=== PATIENT | female | born 1990 | race Caucasian/White ===

== ENCOUNTER 2017-11-12 11:52 | Inpatient (IN) | payer BC ==
[2017-11-12] MEDS ORDERED: Ondansetron 4 MG/2 ML SDV IVPUSH PRN (13:53)
[2017-11-12] MEDS ORDERED: fentaNYL 100 MCG/2 ML SDV EPIDUR PRN (13:53)
[2017-11-12] MEDS ORDERED: ePHEDrine 50 MG/ML SDV IVPUSH PRN (13:53)
[2017-11-12] MEDS ORDERED: Phenylephrine 1 MG in Sodium Chloride 0.9% 10 ML IV SCH (14:00)
[2017-11-12] MEDS ORDERED: Bupivacaine/fentaNYL/NS 100 ML Bag EPIDUR SCH (14:00)
--- NOTE | 2017-11-12 14:08 | PCM.PREANE ---
Preanesthetic Assessment - Anesthesia/Transfusion/Family Hx Anesthesia History: Prior Anesthesia Without Reaction Family History of Anesthesia Reaction: No Transfusion History: No Prior Transfusion(s) Intubation History: Unknown - Review of Systems General: No Symptoms Pulmonary: No Symptoms (quit smoking with /March 2017/sports induced asthma in the past.), Cough Cardiovascular: No Symptoms Gastrointestinal: No Symptoms (GERD) Neurological: No Symptoms Other: Reports: Easy Bruising, Diabetes (gestational DM diet controlled) - Physical Assessment NPO Status Date: 11/12/17 NPO Status Time: 11:30 Pulse: 70 O2 Sat by Pulse Oximetry: 99 Respiratory Rate: 22 Blood Pressure: 129/79 Temperature: 100.8 C Height: 1.57 m Weight: 90.174 kg ASA Class: 2 Mental Status: Alert & Oriented x3 Airway Class: Mallampati = 2 Dentition: Reports: Normal Dentition, Caries Thyro-Mental Finger Breadths: 3 Mouth Opening Finger Breadths: 3 ROM/Head Extension: Full Lungs: Clear to Auscultation, Normal Respiratory Effort Cardiovascular: Regular Rate, Regular Rhythm, No Murmurs - Allergies Allergies/Adverse Reactions: Allergies Allergy/AdvReac Type Severity Reaction Status Date / Time No Known Allergies Allergy Verified 11/12/17 12:09 - Anesthesia Plan Pre-Op Medication Ordered: None - Acknowledgements Anesthesia Type Planned: Epidural Pt an Appropriate Candidate for the Planned Anesthesia: Yes Alternatives and Risks of Anesthesia Discussed w Pt/Guardian: Yes Pt/Guardian Understands and Agrees with Anesthesia Plan: Yes PreAnesthesia Questionnaire - CURRENT (IN HOUSE) MEDS Current Meds: Current Medications Ephedrine Sulfate (Ephedrine Sulfate) 5 mg IVPUSH ASDIRECTED PRN PRN Reason: Hypotension Fentanyl (Sublimaze) 100 mcg EPIDUR Q3H PRN PRN Reason: Pain Fentanyl/Bupivacaine HCl (Fentanyl/Bupivacaine/Ns 2 Mcg-0.125% 100 Ml) 100 ml EPIDUR ASDIRECTED TONY Phenylephrine HCl 1 mg/ Sodium (Chloride) 10.1 mls @ 1 mls/sec IV TITRATE TONY; Protocol Ondansetron HCl (Zofran) 4 mg IVPUSH ONETIME PRN PRN Reason: Nausea/Vomiting
[2017-11-12] MEDS ORDERED: Sodium Chloride 0.9% 10 ML Syringe FLUSH PRN (14:11)
[2017-11-12] MEDS ORDERED: Oxytocin/Lactated Ringers 10 UNIT/1,000 ML BAG IV SCH (14:15)
[2017-11-12] MEDS: Lactated Ringers 1,000 ML IV SCH ×3 (14:30→17:31)
[2017-11-12] MEDS ORDERED: Lanolin 100% Cream 7 GM Tube TOP PRN (21:50)
[2017-11-12] MEDS ORDERED: Acetaminophen 325 MG Tab PO PRN (21:50)
[2017-11-12] MEDS ORDERED: Benzocaine/Menthol 20%-0.5% Spray 56 GM Canister TOP PRN (21:50)
[2017-11-12] MEDS ORDERED: Witch Hazel Medicated Pads 100/Jar TOP PRN (21:50)
[2017-11-12] MEDS ORDERED: Bupivacaine 0.25% 10 ML SDV ONE (22:00)
[2017-11-12] MEDS: Ibuprofen 600 MG Tab PO PRN (23:00)
[2017-11-12] MEDS: Docusate Sodium 100 MG Cap PO PRN (23:01)
[2017-11-13] MEDS: Ibuprofen 600 MG Tab PO PRN ×3 (03:55→16:45)
--- NOTE | 2017-11-13 08:26 | HP ---
DATE OF ADMISSION: 11/12/2017 ADMISSION DIAGNOSES: 1. Intrauterine at 38-4/7 weeks gestational age. 2. Active labor. 3. Advanced cervical dilation. HISTORY OF PRESENT ILLNESS: The patient is a 27-year-old 1, para 0 white female who was admitted in active labor. She had been in earlier in the day with contractions, was sent home feeling that she might be in early labor with possibly false labor, and had not made a significant change in her cervix. Contractions continued, and the patient was readmitted to the hospital with persistent contractions and was found to be 5 cm dilated with a bulging bag of rodriguez at that time. Her ELPIDIO is 11/22/2017 as based upon a certain last menstrual period, which started on 02/15/2017, and is supported by 3 ultrasounds, with the first one being done on 04/20/2017 at 9-4/7 weeks, the second one done on 04/08/2017 at 7-2/7 weeks gestational age, and a full ultrasound done at 20-5/7 weeks on 07/10/2017. The patient is desiring an epidural. An epidural was placed. OBSTETRICAL AND GYNECOLOGICAL HISTORY: 1, para 0. Last menstrual period was fairly definite with normal regular monthly menses at a frequency of q.28-30 days and a duration of 5 to 7 days. Menarche age 13. Positive HCG on 03/13/2017. course has been relatively unremarkable. She is a [facility] patient. She had a quad screen which was unremarkable. She failed her 3-hour glucose tolerance test and was labeled a gestational diabetic. Her blood sugars were under good control throughout the with diet alone. Her group B strep screen was negative. The patient had the flu vaccine last fall. She is desiring an epidural in Labor and Delivery. The patient plans to breastfeed. Tdap was administered on 09/07/2017. COURSE: The patient was seen early in the at 9 weeks and 1 day for her first visit and at 7 weeks and 2 days for an early ultrasound. Her weight gain was from 189.6 pounds up to 198 pounds for a 9-pound weight gain. Her vital signs were stable, and fundal height growth was appropriate. LABORATORY DATA: Laboratory testing in shows her blood to be O positive with a negative antibody screen. First hemoglobin was 13.4 g/dL, and platelets were 195,000. She is rubella immune. RPR is nonreactive. Hepatitis B and HIV assays were both negative. Gonorrhea and chlamydia assays were both negative. Second-trimester labs showed a hemoglobin of 11.9 g/dL and platelets 193,000. 1 - hour GTT was 162. Her 3-hour glucose tolerance test was elevated with a fasting blood sugar of 90, a 1-hour glucose of 219, a 2-hour glucose of 196, and a 3- hour glucose of 81. Her group B strep screen was negative. ALLERGIES: None. CURRENT MEDICATIONS: 1. Iron in the form of ferrous sulfate 325 mg per day. 2. vitamins 1 daily. 3. Calcium 500 mg 1 tablet daily. PAST MEDICAL HISTORY: History of asthma. PAST SURGICAL HISTORY: [place] teeth extraction. FAMILY HISTORY: The patient's mother is alive and well with factor V Leiden mutation. The patient reports she has been evaluated for this and does not have this condition. Father with a history of DVT, on anticoagulants. Two brothers are healthy. One sister with endometriosis. Maternal grandmother is alive with factor V Leiden mutation. Paternal grandfather is alive with Alzheimer's and pancreatic cancer. Paternal grandmother is alive with a history of schizophrenia. Paternal grandfather is secondary to a motor vehicle accident. SOCIAL HISTORY: The patient is . is Krystian Virgen. The patient is a retail customer service representative. She lives in [place]. She does not use any significant amounts of alcohol, drugs, or tobacco. REVIEW OF SYSTEMS: GENERAL: The patient reports contractions and good activity. She has no other significant concerns. SKIN: Negative. CARDIOVASCULAR: No chest pain or exercise intolerance. RESPIRATORY: No infectious disease or shortness of breath. BREASTS: Changes associated with . The patient does plan to breastfeed. GASTROINTESTINAL: Negative. GENITOURINARY: Contractions and cervical dilation as described above. EXTREMITIES: Negative. NEUROLOGICAL: Negative. PHYSICAL EXAMINATION: VITAL SIGNS: On the last evaluation in the clinic shows blood pressure 120/68. Weight is 198 with a pregravid weight of 189.6 and a pregravid body mass index of 31. heart rate on the last evaluation in the clinic is 160. GENERAL: The patient is a well-developed, well-nourished, overweight female in no acute distress. SKIN: Warm and dry, without lesion. The patient has many tattoos. HEENT: Within normal limits. NECK: Within normal limits. BACK: Within normal limits. LUNGS: Clear, with good breath sounds in all lung felix. CARDIOVASCULAR: Shows a regular rate and rhythm, without murmurs. BREASTS: Deferred at this time, having been done at the first visit and found to be normal. It is not repeated at this time. ABDOMEN: Protuberant with , with a last fundal height of 38 cm. The baby is in a vertex presentation. The cervix on the last evaluation in the clinic was 2 cm, 70% effaced, very soft, -3 station, and midposition. EXTREMITIES: Unremarkable. NEUROLOGICAL: Unremarkable. ASSESSMENT: 1. A 38-4/7 weeks intrauterine , active labor, change in cervix. 2. Relatively low-risk , does have a family history of factor V Leiden mutation but she herself does not have this. 3. Group B streptococcus screen is negative. 4. The patient desires an epidural. 5. The patient plans to breastfeed. PLAN: 1. Anticipate a normal spontaneous vaginal delivery. 2. Epidural p.r.n. for the patient's analgesia. 3. Routine labor cares. MMODAL /[id number] ANEUDY
--- NOTE | 2017-11-13 08:49 | PCM.SN ---
- Free Text/Narrative Note: Mona is a 27-year-old 1 now para 1001 white female who is admitted in active labor in the afternoon of 11/12/2017. She is 38-4/7 weeks gestational age. She progressed steadily in labor to complete cervical dilation. At that time artificial rupture membranes was can with resultant mild meconium-stained amniotic fluid. Patient began having significant variable decelerations and a bradycardia and decision was made to proceed with vacuum extraction delivery. Vacuum extraction was performed with one contraction and without any pop offs. Patient did very well. He delivered a viable, gant, male weighing 7 lbs. 5 oz. and delivering in a right occiput anterior position. Patient had a second-degree laceration. Patient was treated with Pitocin IV after delivery of the baby to facilitate increase in tone of the uterus and to decrease likelihood of bleeding. The cord was clamped 2 and was then cut by the baby's father. Baby was taken to the warmer and attended to by nursery personnel. Apgars were 8 and 9. The laceration was repaired in routine fashion with 3-0 Monocryl. Placenta delivered in a Gutierrez presentation, appeared intact and complete and was discarded per patient desire. Estimated blood loss was 100 mL. Patient plans to breast-feed. Condition: Good.
--- NOTE | 2017-11-13 08:51 | PCM.SN ---
- Free Text/Narrative Note: note: Patient is doing well in the period. Minimal lochia, voiding well, ambulated without problems. Nursing without concerns. Patient is afebrile, vital signs are stable Abdomen is flat, soft, uterus is below the umbilicus and is firm and nontender. Legs are nontender. Assessment: recovery going well. Plan: Routine care. Patient be discharged home within the next 24- 48 hours.
--- NOTE | 2017-11-13 10:55 | PCM48HPAN ---
Post Anesthesia Note - EVALUATION WITHIN 48HRS OF ANESTHETIC Vital Signs in Normal Range: Yes Patient Participated in Evaluation: Yes Respiratory Function Stable: Yes Airway Patent: Yes Cardiovascular Function Stable: Yes Hydration Status Stable: Yes Pain Control Satisfactory: Yes Nausea and Vomiting Control Satisfactory: Yes Mental Status Recovered: Yes Pulse Rate: 64 Resp Rate: 15 Temperature: 36.4 C Blood Pressure: 109/62 - COMMENTS/OBSERVATIONS Free Text/Narrative:: Evaluated post Labor Epidural 11/13/17. Patient states that epidural covered labor pain well. Some bruising feeling at epidural site. No major pain, no headache at this time. No N/V. Able to ambulate without assistance.
[2017-11-13] MEDS: Docusate Sodium 100 MG Cap PO PRN (16:45)
[2017-11-14] MEDS: Ibuprofen 600 MG Tab PO PRN ×2 (00:46→08:43)
[2017-11-14] MEDS: Docusate Sodium 100 MG Cap PO PRN (08:46)
--- NOTE | 2017-11-14 10:25 | PCM.DCSUM1 ---
Discharge Summary - Hospital Course Free Text/Narrative:: [facility] LIVE Provider Simple Note Patient Name: MONA SHARIF Date of : [birth year] Patient Status: Inpatient Attending Provider: Felix Bradley Date: 11/13/17 08:44 Initialization Date: 11/13/17 08:44 - Free Text/Narrative Note: Mona is a 27-year-old 1 now para 1001 white female who is admitted in active labor in the afternoon of 11/12/2017. She is 38-4/7 weeks gestational age. She progressed steadily in labor to complete cervical dilation. At that time artificial rupture membranes was can with resultant mild meconium-stained amniotic fluid. Patient began having significant variable decelerations and a bradycardia and decision was made to proceed with vacuum extraction delivery. Vacuum extraction was performed with one contraction and without any pop offs. Patient did very well. He delivered a viable, gant, male infant weighing 7 lbs. 5 oz. and delivering in a right occiput anterior position. Patient had a second-degree laceration. Patient was treated with Pitocin IV after delivery of the baby to facilitate increase in tone of the uterus and to decrease likelihood of bleeding. The cord was clamped 2 and was then cut by the baby's father. Baby was taken to the warmer and attended to by nursery personnel. Apgars were 8 and 9. The laceration was repaired in routine fashion with 3-0 Monocryl. Placenta delivered in a Gutierrez presentation, appeared intact and complete and was discarded per patient desire. Estimated blood loss was 100 mL. Patient plans to breast-feed. Condition: Good. EPDS 2/30 no suicidal plans, ideations, desire to hurt self or others. HPI Initial Comments: [facility] LIVE Provider Simple Note Patient Name: MONA SHARIF Date of : [birth year] Patient Status: Inpatient Attending Provider: Felix Bradley Date: 11/13/17 08:44 Initialization Date: 11/13/17 08:44 - Free Text/Narrative Note: Mona is a 27-year-old 1 now para 1001 white female who is admitted in active labor in the afternoon of 11/12/2017. She is 38-4/7 weeks gestational age. She progressed steadily in labor to complete cervical dilation. At that time artificial rupture membranes was can with resultant mild meconium-stained amniotic fluid. Patient began having significant variable decelerations and a bradycardia and decision was made to proceed with vacuum extraction delivery. Vacuum extraction was performed with one contraction and without any pop offs. Patient did very well. He delivered a viable, gant, male weighing 7 lbs. 5 oz. and delivering in a right occiput anterior position. Patient had a second-degree laceration. Patient was treated with Pitocin IV after delivery of the baby to facilitate increase in tone of the uterus and to decrease likelihood of bleeding. The cord was clamped 2 and was then cut by the baby's father. Baby was taken to the warmer and attended to by nursery personnel. Apgars were 8 and 9. The laceration was repaired in routine fashion with 3-0 Monocryl. Placenta delivered in a Gutierrez presentation, appeared intact and complete and was discarded per patient desire. Estimated blood loss was 100 mL. Patient plans to breast-feed. Condition: Good. EPDS 2/30 no suicidal plans, ideations, desire to hurt self or others. Brief History: [facility] . [facility] Simple Note. [facility]: [id number] Date of : Patient Status: Inpatient. Attending Provider: Felix Bradley FAccount Number : [id number]. Date: 11/13/17 08:44Initialization Date: 11/13/17 08:44. - Free Text/Narrative. Note: Mona is a 27-year-old 1 now para 1001 white female who is admitted in active labor in the afternoon of 11/12/2017. She is 38-4/7 weeks gestational age. She progressed steadily in labor to complete cervical dilation. At that time artificial rupture membranes was can with resultant mild meconium-stained amniotic fluid. Patient began having significant variable decelerations and a bradycardia and decision was made to proceed with vacuum extraction delivery. Vacuum extraction was performed with one contraction and without any pop offs. Patient did very well. He delivered a viable, gant, male weighing 7 lbs. 5 oz. and delivering in a right occiput anterior position. Patient had a second-degree laceration. Patient was treated with Pitocin IV after delivery of the baby to facilitate increase in tone of the uterus and to decrease likelihood of bleeding. The cord was clamped 2 and was then cut by the baby's father. Baby was taken to the warmer and attended to by nursery personnel. Apgars were 8 and 9. The laceration was repaired in routine fashion with 3-0 Monocryl. Placenta delivered in a Gutierrez presentation, appeared intact and complete and was discarded per patient desire. Estimated blood loss was 100 mL. Patient plans to breast-feed. Condition : Good. EPDS no suicidal plans, ideations, desire to hurt self or others. Diagnosis: Stroke: No - Discharge Data Discharge Date: 11/14/17 Discharge Disposition: Home, Self-Care 01 Condition: Good - Discharge Diagnosis/Problem(s) (1) 38 weeks gestation of SNOMED Code(s): 29759227 ICD Code: Z3A.38 - 38 WEEKS GESTATION OF Status: Acute Current Visit: Yes (2) Normal delivery SNOMED Code(s): 94651722, 753457212 ICD Code: O80 - ENCOUNTER FOR FULL-TERM UNCOMPLICATED DELIVERY Status: Acute Current Visit: Yes (3) Second degree laceration of perineum, delivered, current hospitalization SNOMED Code(s): 112776893 ICD Code: O70.1 - SECOND DEGREE PERINEAL LACERATION DURING DELIVERY Status : Acute Current Visit: Yes - Patient Summary/Data Complications: None Consults: None Hospital Course: Uneventful - Patient Instructions Diet: Regular Diet as Tolerated Driving: Do Not Drive (48 hours) Showering/Bathing: May Shower Notify Provider of: Fever, Increased Pain, Swelling and Redness, Drainage, Nausea and/or Vomiting - Discharge Plan Prescriptions/Med Rec: Ibuprofen 200 - 600 mg PO Q6H #50 tablet Home Medications: Home Meds Ferrous Sulfate [Slow Release Iron] 160 mg PO DAILY 11/12/17 [History] Prenat Vit Comb.10/Iron/Fa/Dha [Vitafol-OB + DHA] 1 each PO DAILY 11/12/17 [ History] Acetaminophen [Tylenol] 650 mg PO Q4H PRN tablet 11/14/17 [Rx] Docusate Sodium [Colace] 100 mg PO BID PRN cap 11/14/17 [Rx] Ibuprofen 200 - 600 mg PO Q6H #50 tablet 11/14/17 [Rx] Lanolin [Lansinoh HPA] 1 applic TOP ASDIRECTED PRN #1 tube 11/14/17 [Rx] Witch Aide [Tucks] 1 pad TOP ASDIRECTED PRN pad 11/14/17 [Rx] Referrals: Felix Bradley MD [Primary Care Provider] - (Patient will call Thursday to see Dr. Bradley in 2 weeks.) - Discharge Summary/Plan Comment DC Time >30 min.: No - Patient Data Vitals - Most Recent: Last Vital Signs Temp 97.9 F 11/14/17 03:15 Pulse 65 11/14/17 03:15 Resp 15 11/14/17 03:15 BP 94/50 L 11/14/17 03:15 Pulse Ox 97 11/14/17 03:15 Weight - Most Recent: 198 lb 12.8 oz I&O - Last 24 hours: Intake & Output 11/13/17 11/14/17 11/14/17 22:59 06:59 14:59 Intake Total 0 Balance 0 Lab Results - Last 24 hrs: Laboratory Results - last 24 hr 11/12/17 Range/Units 14:24 RPR Non-reactive (NONREACTIVE) Med Orders - Current: Current Medications Acetaminophen (Tylenol) 650 mg PO Q4H PRN PRN Reason: mild pain or fever Benzocaine/Menthol (Dermoplast Pain Relief [place]) 0 gm TOP ASDIRECTED PRN PRN Reason: Perineal Comfort Measure Last Admin: 11/12/17 23:00 Dose: 1 applic Docusate Sodium (Colace) 100 mg PO BID PRN PRN Reason: Constipation Last Admin: 11/14/17 08:46 Dose: 100 mg Emollient Ointment (Lansinoh Hpa) 0 gm TOP ASDIRECTED PRN PRN Reason: Sore Nipples Last Admin: 11/14/17 02:36 Dose: 1 tube Ibuprofen (Motrin) 600 mg PO Q4H PRN PRN Reason: Mild pain or fever Last Admin: 11/14/17 08:43 Dose: 600 mg Witch Aide (Tucks) 1 pad TOP ASDIRECTED PRN PRN Reason: Hemorrhoid pain Last Admin: 11/12/17 22:59 Dose: 1 applic Discontinued Medications Ephedrine Sulfate (Ephedrine Sulfate) 5 mg IVPUSH ASDIRECTED PRN PRN Reason: Hypotension Fentanyl (Sublimaze) 100 mcg EPIDUR Q3H PRN PRN Reason: Pain Last Admin: 11/12/17 14:51 Dose: 100 mcg Fentanyl/Bupivacaine HCl (Fentanyl/Bupivacaine/Ns 2 Mcg-0.125% 100 Ml) 100 ml EPIDUR ASDIRECTED TONY Last Admin: 11/12/17 14:51 Dose: 100 ml Phenylephrine HCl 1 mg/ Sodium (Chloride) 10.1 mls @ 1 mls/sec IV TITRATE TONY; Protocol Lactated Ringer's (Ringers, Lactated) 1,000 mls @ 100 mls/hr IV ASDIRECTED TONY Last Admin: 11/12/17 17:31 Dose: 100 mls/hr Oxytocin/Lactated Ringer's (Pitocin In Lr 10 Units/1,000 Ml) 10 unit in 1,000 mls @ 100 mls/hr IV .CONTINUOUS TONY; Protocol Ondansetron HCl (Zofran) 4 mg IVPUSH ONETIME PRN PRN Reason: Nausea/Vomiting Sodium Chloride (Saline Flush) 10 ml FLUSH ASDIRECTED PRN PRN Reason: Keep Vein Open
== END 2017-11-14 13:00 | disposition home or self-care (01) | DRG 560 ==
LOC: JD.OBCHECK 11:52 → JD.OB 11:58 → JD.OBCHECK 16:34 → JD.OB 16:35 → OBSVTOIN 19:40 → JD.OB 20:05
PROVIDERS: ADMIT Obstetrics & Gynecology; ATTEND Obstetrics & Gynecology
PROC: 10D07Z6 Extraction of Products of Conception, Vacuum, Via Natural or Artificial Opening (ICD-10-PCS; principal; 2017-11-12)
PROC: 0KQM0ZZ Repair Perineum Muscle, Open Approach (ICD-10-PCS; 2017-11-12)
PROC: 10907ZC Drainage of Amniotic Fluid, Therapeutic from Products of Conception, Via Natural or Artificial Opening (ICD-10-PCS; 2017-11-12)
PROC: 00HU33Z Insertion of Infusion Device into Spinal Canal, Percutaneous Approach (ICD-10-PCS; 2017-11-12)
PROC: 3E0R3BZ Introduction of Anesthetic Agent into Spinal Canal, Percutaneous Approach (ICD-10-PCS; 2017-11-12)
DX: O70.1 Second degree perineal laceration during delivery (principal); O69.81X0 Labor and delivery complicated by cord around neck, without compression, not applicable or unspecified; O77.0 Labor and delivery complicated by meconium in amniotic fluid; Z3A.38 38 weeks gestation of pregnancy; Z37.0 Single live birth; O36.8190 Decreased fetal movements, unspecified trimester, not applicable or unspecified
CPT/HCPCS: 01967; 36415; 51702; 59020; 59300; 59409; 85025; 85027; 86592; A9270-GY; J3010; J7120

== ENCOUNTER 2020-05-10 16:03 | Inpatient (IN) | payer OTHER ==
[2020-05-10] MEDS ORDERED: Metoclopramide 10 MG/2 ML SDV IVPUSH ONE (16:18)
[2020-05-10] MEDS ORDERED: Sodium Chloride 0.9% 10 ML Syringe FLUSH PRN (16:18)
[2020-05-10] MEDS ORDERED: Citric Acid/Sodium Citrate Solution 30 ML Cup PO ONE (16:18)
[2020-05-10] MEDS ORDERED: ceFAZolin 2 GM in Premix Bag 1 BAG IV ONE (16:18)
[2020-05-10] MEDS ORDERED: Bupivacaine 0.5% 30 ML SDV ONE (16:24)
[2020-05-10] MEDS ORDERED: Lactated Ringers 1,000 ML IV SCH (16:30)
[2020-05-10] MEDS ORDERED: Oxytocin/Lactated Ringers 10 UNIT/1,000 ML BAG IV SCH ×2 (16:30→19:19)
[2020-05-10] MEDS ORDERED: Oxytocin/Lactated Ringers 20 UNIT/1,000 ML BAG IV SCH (17:00)
[2020-05-10] MEDS ORDERED: Morphine PF 10 MG/10 ML SDV ONE (17:04)
[2020-05-10] MEDS ORDERED: Oxytocin 10 Units/1 ML SDV ONE (17:04)
[2020-05-10] MEDS ORDERED: Lactated Ringers 2,000 ML ONE (17:04)
[2020-05-10] MEDS ORDERED: Ondansetron 4 MG/2 ML SDV ONE (17:04)
[2020-05-10] MEDS ORDERED: ceFAZolin 1 GM Vial ONE (17:04)
[2020-05-10] MEDS ORDERED: Ketorolac 15 MG/ML SDV ONE (17:06)
[2020-05-10] MEDS ORDERED: fentaNYL 100 MCG/2 ML SDV IVPUSH PRN (17:13)
[2020-05-10] MEDS ORDERED: diphenhydrAMINE 50 MG/ML SDV IVPUSH PRN ×2 (17:13→19:19)
[2020-05-10] MEDS ORDERED: Ondansetron 4 MG/2 ML SDV IVPUSH PRN (17:13)
--- NOTE | 2020-05-10 17:13 | PCM.LDHP ---
L&D History of Present Illness - General Date of Service: 05/10/20 Admit Problem/Dx: Patient Status Order with Admit Dx/Problem 05/10/20 16:18 Patient Status [ADT] Routine Admission Diagnosis/Problem Admission Diagnosis/Problem Source of Information: Patient History Limitations: Reports: No Limitations - History of Present Illness Introduction:: Mona Virgen is a 29-year-old -0-0-1 female at 38 weeks 0 days sees ELPIDIO 05/24/2020) who presented to clinic with concern for possible labor with regular contractions. She was having contractions every 2 to 3 minutes on the monitor and was feeling these contractions at a 4-5/10 on a pain scale. The NST she had done in the office was reactive. On cervical exam the office she was found to be 5/60/-3/soft/anterior. Patient was sent to labor and delivery due to being an active labor and desiring primary section. Timing/Duration: Reports: gradual onset (At around 11 AM), getting worse Location, : Reports: Lower back, Pelvic Quality: Reports: Pressure, Throbbing Severity: Mild Improves with: Reports: None Worsens with: Reports: None Associated Symptoms: Reports: vaginal bleeding (Small amount of bleeding with the start of the contractions). Denies: vaginal discharge, vaginal fluid Present Illness Comments:: Mona Virgen is a 29-year-old -0-0-1 female at 38 weeks 0 days (ELPIDIO 05/24/2020) by LMP consistent with a 12-week ultrasound who presents with active labor and desires primary section. She has had routine care with Dr. Bradley starting at 12 weeks gestational age. She received Tdap vaccine on 04/23/2020. She received influenza vaccine on 03/26/2020. Patient was found to have that was measuring large for dates on ultrasound that was done on 02/27/2020 with the measuring approximately 3 weeks ahead. Patient had discussion with her primary provider, Dr. Bradley, about performing primary section due to the infant that was measuring large as well as her history of pelvic floor injury after the operative delivery of her first where she developed a significant cystocele as well as stress urinary incontinence. Patient is concerned about ongoing issues with pelvic floor injury with delivery of this infant if it is measuring larger than normal. Patient was scheduled for primary section on 05/17/[address] Bradley. This is complicated by: * History of gestational diabetes in her first with normal testing during this * Large for gestational age infant with measuring 3 weeks ahead on ultrasound done at 31 weeks gestational age [employer] history -0-0-1 G1: 11/12/2017, 38 weeks 4 days, vacuum-assisted vaginal delivery, male , 7 pounds 6 ounces, epidural for anesthesia G2: Current labs Blood type: O+ Antibody screen: Negative First trimester hematocrit/hemoglobin: 39.4%/13.3 on 11/07/2019 Platelets: 219 on 11/07/2019 Urine culture: Mixed karo suggestive of contamination Rubella status: Immune Hepatitis B surface antigen: Negative RPR: Negative HIV: Negative Early 1 hour glucose tolerance test: 108 Anatomy ultrasound: Normal anatomy, normal placental location, EFW 2389 g on ultrasound done on 03/28/2020 One hour glucose tolerance test: 112 Second trimester hematocrit/hemoglobin: 37.0%/12.2 on 12/06/2019 Platelets: 196 on 12/06/2019 GBS status: Negative - Related Data Allergies/Adverse Reactions: Allergies Allergy/AdvReac Type Severity Reaction Status Date / Time No Known Allergies Allergy Verified 11/12/17 12:09 Home Medications: Home Meds Ferrous Sulfate [Slow Release Iron] 160 mg PO DAILY 11/12/17 [History] Vit 10/Iron/Folic/Dha [Vitafol-OB + DHA] 1 each PO DAILY 11/12/17 [History] Past Medical History - Past Health History Medical/Surgical History: Denies Medical/Surgical History Respiratory History: Reports: Asthma Other Respiratory History: exercise induced asthma [employer] History: Reports: : 2 Para: 1 Endocrine/Metabolic History: Reports: Diabetes, Gestational (History of gestational diabetes in her first ) - Past Surgical History HEENT Surgical History: Reports: None Respiratory Surgical History: Reports: None Female Surgical History: Reports: None Social & Family History - Family History Family Medical History: No Pertinent Family History - Tobacco Use Tobacco Use Status *Q: Former Tobacco User Tobacco Use Within Last Twelve Months: No Used Tobacco, but Quit: Yes Month/Year Tobacco Last Used: 2016 Second Hand Smoke Exposure: No - Tobacco Core Measures Tobacco Use/Smoking Within Last 30 Days: No Smokeless Tobacco Use in Last 30 Days: No - Caffeine Use Caffeine Use: Reports: None - Alcohol Use Alcohol Use History: No - Recreational Drug Use Recreational Drug Use: No - Living Situation & Occupation Living situation: Reports: , with Spouse, with Family Occupation: Employed H&P Review of Systems - Review of Systems: Review Of Systems: See Below General: Denies: Fever, Chills, Malaise, Weakness, Fatigue HEENT: Reports: Sinus Congestion. Denies: Headaches, Rhinitis, Post Nasal Drip, Sore Throat, Visual Changes Pulmonary: Denies: Shortness of Breath, Wheezing, Pleuritic Chest Pain, Cough Cardiovascular: Denies: Chest Pain, Palpitations, Dyspnea on Exertion, Orthopnea Gastrointestinal: Denies: Abdominal Pain, Constipation, Diarrhea, Nausea, Vomiting Genitourinary: Denies: Dysuria, Frequency, Burning, Pain Musculoskeletal: Reports: Back Pain (And hip pain of ), Other (Pelvic pain and pressure with contractions) Skin: Denies: Rash, Lesions Psychiatric: Denies: Depression, Anxiety Neurological: Denies: Dizziness, Headache L&D Exam - Exam Exam: See Below - Vital Signs Weight: 98.43 kg - OB Specific Contraction Duration (sec): 45-60 Contraction Frequency (min): 2-3 Contraction Intensity: Moderate to Strong Movement: Active Heart Tones: Present Heart Tones per Min: 140 (+15 x 15 accelerations, no decelerations) Heart Rate (FHR) Variability: Moderate (6-25 bmp) Presentation: Vertex Estimated Weight: 8.5 to 9 pounds by Javy's - Olivia Score Olivia Score Cervix Position: Anterior Olivia Score Consistency: Soft Olivia Score Effacement: 51-70% (60%) Olivia Score Dilation: > 5 cm (5 cm) Olivia Score 's Station: -3 Olivia Score Total: 9 - Exam General: Alert, Oriented HEENT: Conjunctiva Clear, EOMI Neck: Supple, Trachea Midline Lungs: Clear to Auscultation, Normal Respiratory Effort Cardiovascular: Regular Rate, Regular Rhythm GI/Abdominal Exam: Soft, Non-Tender, No Distention, Other (Gravid). No: Guarding, Rigid, Rebound Genitourinary: Normal external exam Extremities: Normal Inspection, Pedal Edema (1+) Skin: Warm, Dry, Intact Psychiatric: Alert, Normal Affect, Normal Mood - Patient Data Lab Results Last 24 hrs: Laboratory Results - last 24 hr 05/10/20 Range/Units 16:51 WBC 12.85 H (3.98-10.04) K/mm3 RBC 4.05 (3.98-5.22) M/mm3 Hgb 10.5 L (11.2-15.7) gm/dl Hct 33.3 L (34.1-44.9) % MCV 82.2 D (79.4-94.8) fl MCH 25.9 (25.6-32.2) pg MCHC 31.5 L (32.2-35.5) g/dl RDW Std Deviation 39.2 (36.4-46.3) fL Plt Count 208 (182-369) K/mm3 MPV 10.6 (9.4-12.3) fl Neut % (Auto) 80.0 H (34.0-71.1) % Lymph % (Auto) 13.5 L (19.3-51.7) % [place] % (Auto) 5.6 (4.7-12.5) % Eos % (Auto) 0.3 L (0.7-5.8) Baso % (Auto) 0.2 (0.1-1.2) % Neut # (Auto) 10.28 H (1.56-6.13) K/mm3 Lymph # (Auto) 1.73 (1.18-3.74) K/mm3 [place] # (Auto) 0.72 H (0.24-0.36) K/mm3 Eos # (Auto) 0.04 (0.04-0.36) K/mm3 Baso # (Auto) 0.03 (0.01-0.08) K/mm3 Result Diagrams: 05/10/20 16:51 - Problem List (1) Large for gestational age fetus affecting mother, antepartum, third trimester, single gestation SNOMED Code(s): 96245483, 31863332, 10332149, 578168222 ICD Code: O36.63X0 - MATERNAL CARE FOR EXCESS GROWTH, THIRD TRIMESTER, UNSP Status: Acute Current Visit: Yes (2) 38 weeks gestation of SNOMED Code(s): 13248037 ICD Code: Z3A.38 - 38 WEEKS GESTATION OF Status: Acute Current Visit: No Problem List Initiated/Reviewed/Updated: Yes Orders Last 24hrs: Active Orders 24 hr Category Date Time Status Patient Status [ADT] Routine ADT 05/10/20 16:18 Active Communication Order [RC] ROUTINE Care 05/10/20 16:18 Active Heart Tones [RC] PER UNIT ROUTINE Care 05/10/20 16:18 Active Non Stress Test [RC] PER UNIT ROUTINE Care 05/10/20 16:18 Active Peripheral IV Care [RC] . DIRECTED Care 05/10/20 16:19 Active Procedure Site Prep Instruct [RC] ASDIRECTED Care 05/10/20 16:18 Active Verify Patient Consent Obtain [RC] PER UNIT ROUTINE Care 05/10/20 16:18 Active Vital Signs [RC] PFP Care 05/10/20 16:18 Active CORONAVIRUS COVID-19 AMIRAH [MOLEC] Stat Lab 05/10/20 16:39 Ordered RAPID PLASMA REAGIN,RPR [CHEM] Routine Lab 05/10/20 17:00 Received TYPE AND SCREEN [BBK] Stat Lab 05/10/20 16:18 Ordered Lactated Ringers [Ringers, Lactated] 1,000 ml Med 05/10/20 16:30 Active IV ASDIRECTED Oxytocin/Lactated Ringers [Pitocin in LR 10 Units/1,000 Med 05/10/20 16:30 Active ML] 10 unit in 1,000 ml IV ASDIRECTED Oxytocin/Lactated Ringers [Pitocin in LR 20 Units/1,000 Med 05/10/20 17:00 Active ML] 20 unit in 1,000 ml IV TITRATE Sodium Chloride 0.9% [Saline Flush] Med 05/10/20 16:18 Active 10 ml FLUSH ASDIRECTED PRN Peripheral IV Insertion Adult [OM.PC] Routine Oth 05/10/20 16:18 Ordered Schedule Procedure [COMM] Per Unit Routine Oth 05/10/20 16:18 Ordered Resuscitation Status Routine Resus Stat 05/10/20 16:18 Ordered Medication Orders Oxytocin/Lactated Ringer's (Pitocin In Lr 10 Units/1,000 Ml) 10 unit in 1,000 mls @ 100 mls/hr IV ASDIRECTED TONY Oxytocin/Lactated Ringer's (Pitocin In Lr 20 Units/1,000 Ml) 20 unit in 1,000 mls @ 500 mls/hr IV TITRATE TONY Lactated Ringer's (Ringers, Lactated) 1,000 mls @ 125 mls/hr IV ASDIRECTED TONY Last Admin: 05/10/20 16:51 Dose: 500 mls/hr Documented by: TATO Sodium Chloride (Saline Flush) 10 ml FLUSH ASDIRECTED PRN PRN Reason: Keep Vein Open Assessment/Plan Comment:: Mona Virgen is a 29-year-old -0-0-1 female at 38 weeks 0 days (ELPIDIO 05/24/2020) who presented to clinic in active labor and desires primary section due to infant measuring large for gestational age with concern for pelvic floor injury after she had a pelvic floor injury in her first delivery that was an operative vaginal delivery Admit to inpatient after section NST prior to section Place IV and have Lactated Ringer's at 125 ml/hr SCDs for DVT prophylaxis Nothing by mouth Activity as tolerated Plan for spinal injection for anesthesia CBC, RPR and type and screen prior to surgery COVID-19 swab prior to section Plans to breast-feed after delivery Plan for Ancef 2 g IV for antibiotic prophylaxis prior to surgery Aleksandar Shelby M.D. 5:18 PM 05/10/2020
--- NOTE | 2020-05-10 17:31 | PCM.PREANE ---
Preanesthetic Assessment - Procedure Proposed Procedure: C Section - Anesthesia/Transfusion/Family Hx Anesthesia History: Prior Anesthesia Without Reaction Family History of Anesthesia Reaction: No Transfusion History: No Prior Transfusion(s) Intubation History: Unknown - Review of Systems General: No Symptoms Pulmonary: No Symptoms (Exericise Induced Asthma) Cardiovascular: No Symptoms Gastrointestinal: No Symptoms Neurological: No Symptoms Other: Reports: None - Physical Assessment NPO Status Date: 05/09/20 NPO Status Time: 23:30 Vital Signs: Last Vital Signs Temp 36.8 C 05/10/20 16:54 Pulse 77 05/10/20 16:54 Resp 20 05/10/20 16:54 BP 128/89 05/10/20 16:54 Pulse Ox 96 05/10/20 16:54 Height: 1.57 m Weight: 98.43 kg ASA Class: 2 Mental Status: Alert & Oriented x3 Airway Class: Mallampati = 2 Dentition: Reports: Normal Dentition Thyro-Mental Finger Breadths: 3 Mouth Opening Finger Breadths: 3 ROM/Head Extension: Full Lungs: Clear to Auscultation, Normal Respiratory Effort Cardiovascular: Regular Rate, Regular Rhythm - Lab Values: Laboratory Last Values WBC 12.85 K/mm3 (3.98-10.04) H 05/10/20 16:51 RBC 4.05 M/mm3 (3.98-5.22) 05/10/20 16:51 Hgb 10.5 gm/dl (11.2-15.7) L 05/10/20 16:51 Hct 33.3 % (34.1-44.9) L 05/10/20 16:51 MCV 82.2 fl (79.4-94.8) D 05/10/20 16:51 MCH 25.9 pg (25.6-32.2) 05/10/20 16:51 MCHC 31.5 g/dl (32.2-35.5) L 05/10/20 16:51 RDW Std Deviation 39.2 fL (36.4-46.3) 05/10/20 16:51 Plt Count 208 K/mm3 (182-369) 05/10/20 16:51 MPV 10.6 fl (9.4-12.3) 05/10/20 16:51 Neut % (Auto) 80.0 % (34.0-71.1) H 05/10/20 16:51 Lymph % (Auto) 13.5 % (19.3-51.7) L 05/10/20 16:51 [place] % (Auto) 5.6 % (4.7-12.5) 05/10/20 16:51 Eos % (Auto) 0.3 (0.7-5.8) L 05/10/20 16:51 Baso % (Auto) 0.2 % (0.1-1.2) 05/10/20 16:51 Neut # (Auto) 10.28 K/mm3 (1.56-6.13) H 05/10/20 16:51 Lymph # (Auto) 1.73 K/mm3 (1.18-3.74) 05/10/20 16:51 [place] # (Auto) 0.72 K/mm3 (0.24-0.36) H 05/10/20 16:51 Eos # (Auto) 0.04 K/mm3 (0.04-0.36) 05/10/20 16:51 Baso # (Auto) 0.03 K/mm3 (0.01-0.08) 05/10/20 16:51 - Allergies Allergies/Adverse Reactions: Allergies Allergy/AdvReac Type Severity Reaction Status Date / Time No Known Allergies Allergy Verified 11/12/17 12:09 - Acknowledgements Anesthesia Type Planned: Spinal Pt an Appropriate Candidate for the Planned Anesthesia: Yes Alternatives and Risks of Anesthesia Discussed w Pt/Guardian: Yes Pt/Guardian Understands and Agrees with Anesthesia Plan: Yes PreAnesthesia Questionnaire - Past Health History Medical/Surgical History: Denies Medical/Surgical History Respiratory History: Reports: Asthma Other Respiratory History: exercise induced asthma [employer] DES[employer] History: Reports: Endocrine/Metabolic History: Reports: Diabetes, Gestational - Past Surgical History Respiratory Surgical History: Reports: None - SUBSTANCE USE Tobacco Use Status *Q: Former Tobacco User Tobacco Use Within Last Twelve Months: Cigarettes Second Hand Smoke Exposure: No Recreational Drug Use History: No - HOME MEDS Home Medications: Home Meds Ferrous Sulfate [Slow Release Iron] 160 mg PO DAILY 11/12/17 [History] Vit 10/Iron/Folic/Dha [Vitafol-OB + DHA] 1 each PO DAILY 11/12/17 [History] - CURRENT (IN HOUSE) MEDS Current Meds: Current Medications Diphenhydramine HCl (Benadryl) 25 mg IVPUSH Q6H PRN PRN Reason: Pruritis Fentanyl (Sublimaze) 50 mcg IVPUSH Q5M PRN PRN Reason: Pain Oxytocin/Lactated Ringer's (Pitocin In Lr 10 Units/1,000 Ml) 10 unit in 1,000 mls @ 100 mls/hr IV ASDIRECTED TONY Oxytocin/Lactated Ringer's (Pitocin In Lr 20 Units/1,000 Ml) 20 unit in 1,000 mls @ 500 mls/hr IV TITRATE TONY Lactated Ringer's (Ringers, Lactated) 1,000 mls @ 125 mls/hr IV ASDIRECTED TONY Last Admin: 05/10/20 16:51 Dose: 500 mls/hr Documented by: Ondansetron HCl (Zofran) 4 mg IVPUSH ONETIME PRN PRN Reason: Nausea/Vomiting Sodium Chloride (Saline Flush) 10 ml FLUSH ASDIRECTED PRN PRN Reason: Keep Vein Open Discontinued Medications Bupivacaine HCl (Marcaine 0.5%) Confirm Administered Dose 30 ml .ROUTE .STK-MED ONE Stop: 05/10/20 16:25 Cefazolin Sodium (Ancef) Confirm Administered Dose 2 gm .ROUTE .STK-MED ONE Stop: 05/10/20 17:05 Citric Acid/Sodium Citrate (Bicitra Solution) 30 ml PO ONETIME ONE Stop: 05/10/20 16:19 Last Admin: 05/10/20 16:51 Dose: 30 ml Documented by: Cefazolin Sodium/Dextrose 2 gm (/ Premix) 50 mls @ 100 mls/hr IV ONETIME ONE Stop: 05/10/20 16:47 Lactated Ringer's (Ringers, Lactated) Confirm Administered Dose 2,000 mls @ as directed .ROUTE .STK-MED ONE Stop: 05/10/20 17:05 Ketorolac Tromethamine (Toradol) Confirm Administered Dose 15 mg .ROUTE .STK-MED ONE Stop: 05/10/20 17:07 Metoclopramide HCl (Reglan) 10 mg IVPUSH ONETIME ONE Stop: 05/10/20 16:19 Last Admin: 05/10/20 16:51 Dose: 10 mg Documented by: Morphine Sulfate (Duramorph Pf) Confirm Administered Dose 10 mg .ROUTE .STK-MED ONE Stop: 05/10/20 17:05 Ondansetron HCl (Zofran) Confirm Administered Dose 4 mg .ROUTE .STK-MED ONE Stop: 05/10/20 17:05 Oxytocin (Pitocin) Confirm Administered Dose 20 unit .ROUTE .STK-MED ONE Stop: 05/10/20 17:05
[2020-05-10] MEDS ORDERED: ePHEDrine 50 MG/ML SDV ONE (17:48)
--- NOTE | 2020-05-10 18:23 | PCM.POSTAN ---
POST ANESTHESIA ASSESSMENT - MENTAL STATUS Mental Status: Alert, Oriented - VITAL SIGNS Vital Signs: Last Vital Signs Temp 36.8 C 05/10/20 16:54 Pulse 77 05/10/20 16:54 Resp 20 05/10/20 16:54 BP 128/89 05/10/20 16:54 Pulse Ox 96 05/10/20 16:54 1817 97.8F 96/46 69 16 100% - RESPIRATORY Respiratory Status: Respiratory Rate WNL, Airway Patent, O2 Saturation Stable - CARDIOVASCULAR CV Status: Pulse Rate WNL, Blood Pressure Stable - GASTROINTESTINAL GI Status: No Symptoms - PAIN Pain Score: 0 - POST OP HYDRATION Hydration Status: Adequate & Stable
--- NOTE | 2020-05-10 18:39 | PCM.OPNOTE ---
- General Post-Op/Procedure Note Date of Surgery/Procedure: 05/10/20 Operative Procedure(s): Primary low transverse section Findings: Live female delivered in vertex presentation at 1741 on 05/10/2020. weight of 3640 g (8 pounds 0.4 ounces). Apgars of 8 and 9. Grossly no rmal-appearing uterus, fallopian tubes and ovaries on exam. Pre Op Diagnosis: 38 weeks gestational age, active labor, large for gestational age and concern for pelvic floor injury Post-Op Diagnosis: Same Anesthesia Technique: Spinal Primary Surgeon: Aleksandar Shelby Anesthesia Provider: Susanne Washburn Medical Housekeeper: Yuni Valadez Reason Medical Housekeeper Was Necessary: Patient safety and reduction of morbidity and mortality Role of Medical Housekeeper: Retraction for visualization Fluid Replacement, Intraop: 2,100 Output, Urine Amount: 50 EBL in mLs: 700 Complications: None Condition: Good Free Text/Narrative:: Procedure in Detail: The patient was seen in room #7 and the risks, benefits and complications were discussed with the patient. The patient desired to proceed with section and appropriate consents were signed. The pa tieteresa was taken to operating room #1. A Time Out was held and the patient was identified using 2 identifiers and the procedure was confirmed. The patient was given spinal anesthesia and was placed in dorsal supine position with leftward tilt. She was given 2 g Ancef for antibiotic prophylaxis. A Jeff catheter was inserted without difficulty. The patient was prepped and draped in the usual sterile manner. The abdominal skin was tested and the spinal anesthesia was found to be adequate. The skin was injected with 0.5% marcaine for local anesthesia. A Pfannenstiel skin incision was made and carried down through the subcutaneous tissue to the fascia with the scapel. The fascia was nicked in the midline using a scalpel and the fascial incision was extended transversely with Campuzano scissors. The inferior aspect of the fascia was grasped with Felisa clamps and tented upwards. The fascia was from the underlying rectus muscle bluntly and sharply with Campuzano scissors. Attention was then turned to the superior aspect of the fascia and was grasped using Felisa clamps and tented upwards. The underlying rectus muscle was dissected off bluntly and sharply with Campuzano scissors. The peritoneum was identified and entered bluntly. The bladder blade was inserted and the lower uterine segment was identified. A low transverse uterine incision was made sharply with a scalpel and extended laterally bluntly. The infant's head was felt to be in face presentation and the head was adjusted to bring the also put to the hysterotomy. The head was then brought to the uterine incision, the bladder blade was removed and the infant was delivered atraumatically. On 05/10/2020 a live female was delivered in vertex position at 17:41, wt of 3640 grams, 8 pounds and 0.4 ounces. APGARS were 8 & 9. The nose and mouth were suctioned with bulb suction, the cord was doubly clamped and cut and was transferred to the awaiting excelsior picker. The placenta was removed intact and appeared normal with a three vessel cord. The uterus was exteriorized and the uterine cavity was cleaned using lap sponges. The hysterotomy was closed with a running locked suture of 0-Vicryl. A second suture of 0-Vicryl was used to imbricate the hysterotomy. The hysterotomy was hemostatic. The uterus, tubes and ovaries appeared overall normal. The uterus was then returned into the abdominal cavity. The hysterotomy was noted to remain hemostatic inside the abdominal cavity. The fascia was noted to be hemostatic and the fascia was then reapproximated with running sutures of 0-Vicryl. The skin was reapproximated using 4-0 Monocryl and Steri-strips were applied over the incision. Instrument, sponge, and needle counts were correct prior to the abdominal closure and at the conclusion of the case. Aleksandar Shelby MD 6:39 PM 05/10/2020
[2020-05-10] MEDS ORDERED: Naloxone 0.4 MG/ML SDV IVPUSH PRN (19:19)
[2020-05-10] MEDS ORDERED: Dextrose 5%-Lactated Ringers 1,000 ML IV SCH (19:19)
[2020-05-10] MEDS ORDERED: Magnesium Hydroxide 400 MG/5 ML Susp 30 ML Cup PO PRN (19:19)
[2020-05-10] MEDS ORDERED: ePHEDrine 50 MG/ML SDV IVPUSH PRN (19:19)
[2020-05-10] MEDS: Docusate Sodium 100 MG Cap PO SCH (22:27)
[2020-05-11] MEDS: Ketorolac 15 MG/ML SDV IVPUSH SCH ×3 (00:16→12:06)
[2020-05-11] MEDS: Ferrous Sulfate 324 MG Tab.EC PO SCH (06:47)
--- NOTE | 2020-05-11 08:06 | PCM48HPAN ---
Post Anesthesia Note - EVALUATION WITHIN 48HRS OF ANESTHETIC Vital Signs in Normal Range: Yes Patient Participated in Evaluation: Yes Respiratory Function Stable: Yes Airway Patent: Yes Cardiovascular Function Stable: Yes Hydration Status Stable: Yes Pain Control Satisfactory: Yes Nausea and Vomiting Control Satisfactory: Yes Mental Status Recovered: Yes Vital Signs: Last Vital Signs Temp 36.0 C L 05/11/20 03:58 Pulse 68 05/11/20 03:58 Resp 14 05/11/20 07:00 BP 105/58 L 05/11/20 03:58 Pulse Ox 97 05/11/20 07:00
--- NOTE | 2020-05-11 08:14 | PCM.SN.2 ---
- Free Text/Narrative Note: Post Operative Progress Note POD #1 Subjective: Doing well overall. Patient has not ambulated overnight due to late timing of her delivery but did stand at the bedside and did well with this. Lochia minimal. Jeff draining clear urine. Not passing flatus at this time. Tolerating regular diet without nausea or vomiting. Pain controlled with IV Toradol. Pumping small amounts of colostrum overnight and formula feeding with minimal difficulty. Objective: Vitals: Vital Signs - 8 hr 05/11/20 05/11/20 05/11/20 01:00 02:00 03:00 Temperature Pulse, Peripheral Respiratory 14 14 14 Rate Blood Pressure O2 Sat by Pulse 97 98 99 Oximetry 05/11/20 05/11/20 05/11/20 03:58 04:00 05:00 Temperature 36.0 C L Pulse, 68 Peripheral Respiratory 16 16 14 Rate Blood Pressure 105/58 L O2 Sat by Pulse 97 97 97 Oximetry 05/11/20 05/11/20 05/11/20 06:00 07:00 07:53 Temperature 36.9 C Pulse, 63 Peripheral Respiratory 16 14 16 Rate Blood Pressure 91/48 L O2 Sat by Pulse 98 97 96 Oximetry Physical Exam General: Alert and oriented, no acute distress Lungs: Clear to auscultation bilaterally Heart: Regular rate and rhythm Abdomen: Soft, minimal appropriate tenderness, non-distended, fundus midline, nontender and at the umbilicus Incision: Clean, dry and intact, no erythema, bleeding or drainage with Steri- Strips in place Extremities: Trace edema in bilateral lower extremities to mid shins Labs: Laboratory Results - last 24 hr 05/10/20 05/10/20 05/10/20 Range/Units 16:50 16:50 16:51 WBC 12.85 H (3.98-10.04) K/mm3 RBC 4.05 (3.98-5.22) M/mm3 Hgb 10.5 L (11.2-15.7) gm/dl Hct 33.3 L (34.1-44.9) % MCV 82.2 D (79.4-94.8) fl MCH 25.9 (25.6-32.2) pg MCHC 31.5 L (32.2-35.5) g/dl RDW Std Deviation 39.2 (36.4-46.3) fL Plt Count 208 (182-369) K/mm3 MPV 10.6 (9.4-12.3) fl Neut % (Auto) 80.0 H (34.0-71.1) % Lymph % (Auto) 13.5 L (19.3-51.7) % Bertie % (Auto) 5.6 (4.7-12.5) % Eos % (Auto) 0.3 L (0.7-5.8) Baso % (Auto) 0.2 (0.1-1.2) % Neut # (Auto) 10.28 H (1.56-6.13) K/mm3 Lymph # (Auto) 1.73 (1.18-3.74) K/mm3 Bertie # (Auto) 0.72 H (0.24-0.36) K/mm3 Eos # (Auto) 0.04 (0.04-0.36) K/mm3 Baso # (Auto) 0.03 (0.01-0.08) K/mm3 RPR (NONREACTIVE) SARS-CoV-2 RNA (AMIRAH) Negative (NEGATIVE) Blood Type O POSITIVE Gel Antibody Screen Negative 05/10/20 05/11/20 Range/Units 17:00 04:11 WBC 10.08 H (3.98-10.04) K/mm3 RBC 3.21 L (3.98-5.22) M/mm3 Hgb 8.3 L D (11.2-15.7) gm/dl Hct 26.9 L (34.1-44.9) % MCV 83.8 (79.4-94.8) fl MCH 25.9 (25.6-32.2) pg MCHC 30.9 L (32.2-35.5) g/dl RDW Std Deviation 39.2 (36.4-46.3) fL Plt Count 158 L (182-369) K/mm3 MPV 11.5 (9.4-12.3) fl Neut % (Auto) 74.7 H (34.0-71.1) % Lymph % (Auto) 17.5 L (19.3-51.7) % Bertie % (Auto) 6.9 (4.7-12.5) % Eos % (Auto) 0.4 L (0.7-5.8) Baso % (Auto) 0.2 (0.1-1.2) % Neut # (Auto) 7.53 H (1.56-6.13) K/mm3 Lymph # (Auto) 1.76 (1.18-3.74) K/mm3 Bertie # (Auto) 0.70 H (0.24-0.36) K/mm3 Eos # (Auto) 0.04 (0.04-0.36) K/mm3 Baso # (Auto) 0.02 (0.01-0.08) K/mm3 RPR Non-reactive (NONREACTIVE) SARS-CoV-2 RNA (AMIRAH) (NEGATIVE) Blood Type Gel Antibody Screen ASSESSMENT: 29-year-old female -0-0-2 s/p primary section POD #1 for measuring large for gestational age and concern for pelvic floor injury, complicated by history of pelvic floor injury after operative delivery with first child and history of gestational diabetes PLAN: Doing well Pumping breastmilk and formula feeding with minimal difficulty. Assist as needed Incision healing well. Continue to keep clean and dry. Lochia minimal. Continue to monitor for appropriate lochia. Continue routine post-operative care Patient with minimal urine output as low as 25 to 30 mL/h but this improved by this morning Patient with initial hemoglobin of 10.5 with a value of 8 point 3 in the morning of POD #1. We will continue to monitor her vitals closely and repeat CBC if indicated based on hypotension, tachycardia or other symptoms Anticipate discharge home tomorrow Aleksandar Shelby MD 8:20 AM 05/11/2020
[2020-05-11] MEDS: Prenatal Multivitamin with Calcium/Folic Acid/Iron Tab PO SCH (08:46)
[2020-05-11] MEDS: Docusate Sodium 100 MG Cap PO SCH ×2 (08:46→20:52)
[2020-05-11] MEDS: Acetaminophen/oxyCODONE 325-5 MG Tab PO PRN ×3 (08:47→20:52)
[2020-05-11] MEDS: Ibuprofen 600 MG Tab PO PRN (19:36)
[2020-05-12] MEDS: Acetaminophen/oxyCODONE 325-5 MG Tab PO PRN (03:37)
[2020-05-12] MEDS: Ferrous Sulfate 324 MG Tab.EC PO SCH (06:46)
[2020-05-12] MEDS: Docusate Sodium 100 MG Cap PO SCH (08:42)
[2020-05-12] MEDS: Prenatal Multivitamin with Calcium/Folic Acid/Iron Tab PO SCH (08:42)
[2020-05-12] MEDS: Ibuprofen 600 MG Tab PO PRN (08:42)
--- NOTE | 2020-05-12 10:53 | PCM.SN.2 ---
- Free Text/Narrative Note: Post Operative Progress Note POD #2 Subjective: Doing well overall. Patient ambulating without difficulty. Lochia minimal. Jeff draining clear urine. Not passing flatus at this time. Tolerating regular diet without nausea or vomiting. Pain controlled with IV Toradol. Pumping small amounts of colostrum overnight and formula feeding with minimal difficulty. Objective: Vitals: Vital Signs - 24 hr 05/11/20 05/11/20 05/11/20 11:00 12:13 13:00 Temperature 36.6 C Pulse, 63 Peripheral Respiratory 12 12 14 Rate Blood Pressure 106/47 L O2 Sat by Pulse 99 96 99 Oximetry 05/11/20 05/11/20 05/11/20 14:00 15:43 16:00 Temperature 36.8 C Pulse, 86 Peripheral Respiratory 14 12 12 Rate Blood Pressure 102/53 L O2 Sat by Pulse 98 98 100 Oximetry 05/11/20 05/11/20 05/12/20 16:56 20:52 03:32 Temperature 36.8 C 36.1 C Pulse, 76 80 Peripheral Respiratory 12 15 15 Rate Blood Pressure 110/54 L 109/50 L O2 Sat by Pulse 99 97 98 Oximetry 05/12/20 08:45 Temperature 36.6 C Pulse, 81 Peripheral Respiratory 12 Rate Blood Pressure 102/59 L O2 Sat by Pulse 99 Oximetry Physical Exam General: Alert and oriented, no acute distress Lungs: Clear to auscultation bilaterally Heart: Regular rate and rhythm Abdomen: Soft, minimal appropriate tenderness, non-distended, fundus midline, nontender and at the umbilicus Incision: Clean, dry and intact, no erythema, bleeding or drainage with Steri- Strips in place Extremities: Trace edema in bilateral lower extremities to mid shins ASSESSMENT: 29-year-old female -0-0-2 s/p primary section POD #2 for infant measuring large for gestational age and concern for pelvic floor injury, complicated by history of pelvic floor injury after operative delivery with first child and history of gestational diabetes PLAN: Doing well Pumping breastmilk with minimal difficulty. Assist as needed Incision healing well. Continue to keep clean and dry. Lochia minimal. Continue to monitor for appropriate lochia. Continue routine post-operative care Discharge home today Aleksandar Shelby MD 10:51 AM 05/12/2020
--- NOTE | 2020-05-12 10:58 | PCM.DCSUM1 ---
Discharge Summary - Hospital Course Free Text/Narrative:: - General Post-Op/Procedure Note Date of Surgery/Procedure: 05/10/20 Operative Procedure(s): Primary low transverse section Findings: Live female infant delivered in vertex presentation at 1741 on 05/10/2020. weight of 3640 g (8 pounds 0.4 ounces). Apgars of 8 and 9. Grossly normal-appearing uterus, fallopian tubes and ovaries on exam. Pre Op Diagnosis: 38 weeks gestational age, active labor, large for gestational age and concern for pelvic floor injury Post-Op Diagnosis: Same Anesthesia Technique: Spinal Primary Surgeon: Aleksandar Shelby Anesthesia Provider: Susanne Washburn Psychiatric Specialist: Yuni Valadez Reason Psychiatric Specialist Was Necessary: Patient safety and reduction of morbidity and mortality Role of Psychiatric Specialist: Retraction for visualization Fluid Replacement, Intraop: 2,100 Output, Urine Amount: 50 EBL in mLs: 700 Complications: None Condition: Good Free Text/Narrative:: Procedure in Detail: The patient was seen in room #7 and the risks, benefits and complications were discussed with the patient. The patient desired to proceed with section and appropriate consents were signed. The patient was taken to operating room #1. A Time Out was held and the patient was identified using 2 identifiers and the procedure was confirmed. The patient was given spinal anesthesia and was placed in dorsal supine position with leftward tilt. She was given 2 g Ancef for antibiotic prophylaxis. A Jeff catheter was inserted without difficulty. The patient was prepped and draped in the usual sterile manner. The abdominal skin was tested and the spinal anesthesia was found to be adequate. The skin was injected with 0.5% marcaine for local anesthesia. A Pfannenstiel skin incision was made and carried down through the subcutaneous tissue to the fascia with the scapel. The fascia was nicked in the midline using a scalpel and the fascial incision was extended transversely with Campuzano scissors. The inferior aspect of the fascia was grasped with Felisa clamps and tented upwards. The fascia was from the underlying rectus muscle bluntly and sharply with Campuzano scissors. Attention was then turned to the superior aspect of the fascia and was grasped using Felisa clamps and tented upwards. The underlying rectus muscle was dissected off bluntly and sharply with Campuzano scissors. The peritoneum was identified and entered bluntly. The bladder blade was inserted and the lower uterine segment was identified. A low transverse uterine incision was made sharply with a scalpel and extended laterally bluntly. The 's head was felt to be in face presentation and the head was adjusted to bring the also put to the hysterotomy. The head was then brought to the uterine incision, the bladder blade was removed and the infant was delivered atraumatically. On 05/10/2020 a live female was delivered in vertex position at 17:41, wt of 3640 grams, 8 pounds and 0.4 ounces. APGARS were 8 & 9. The nose and mouth were suctioned with bulb suction, the cord was doubly clamped and cut and was transferred to the awaiting babbitter. The placenta was removed intact and appeared normal with a three vessel cord. The uterus was exteriorized and the uterine cavity was cleaned using lap sponges. The hysterotomy was closed with a running locked suture of 0-Vicryl. A second suture of 0-Vicryl was used to imbricate the hysterotomy. The hysterotomy was hemostatic. The uterus, tubes and ovaries appeared overall normal. The uterus was then returned into the abdominal cavity. The hysterotomy was noted to remain hemostatic inside the abdominal cavity. The fascia was noted to be hemostatic and the fascia was then reapproximated with running sutures of 0-Vicryl. The skin was reapproximated using 4-0 Monocryl and Steri-strips were applied over the incision. Instrument, sponge, and needle counts were correct prior to the abdominal closure and at the conclusion of the case. Diagnosis: Stroke: No - Discharge Data Discharge Date: 05/12/20 Discharge Disposition: Home, Self-Care 01 Condition: Good - Referral to Home Health Primary Care Physician: Verónica Mullins NP - Discharge Diagnosis/Problem(s) (1) Large for gestational age fetus affecting mother, antepartum, third trimester, single gestation SNOMED Code(s): 59501665, [id number], 42714367, 559406100 ICD Code: O36.63X0 - MATERNAL CARE FOR EXCESS GROWTH, THIRD TRIMESTER, UNSP Status: Acute Current Visit: Yes (2) 38 weeks gestation of SNOMED Code(s): 79181997 ICD Code: Z3A.38 - 38 WEEKS GESTATION OF Status: Acute Current Visit: No (3) deliv due to previous difficult deliv, deliv, curr hospitaliz SNOMED Code(s): 545218110, 200794152 ICD Code: O82 - ENCOUNTER FOR DELIVERY WITHOUT INDICATION; Z87.59 - PERSONAL HISTORY OF COMP OF PREG, CHLDBRTH AND THE PUERP Status: Acute Current Visit: Yes - Patient Summary/Data Operative Procedure(s) Performed: Primary low transverse section Complications: None Consults: None Hospital Course: Mona Virgen was admitted for primary section in the setting of concern for pelvic floor injury with history of pelvic floor injury after operative delivery in her last . Patient was in labor when she was seen in the office and sent down to labor and delivery for preparation for her primary section. She was counseled on the risks, benefits and alternatives of the procedure and desire to proceed with a section. The consents were signed on labor and delivery for primary section. She was taken back to the OR and given spinal injection for anesthesia. She was given Ancef 2 g IV for antibiotic prophylaxis. She was prepped and draped in the normal fashion. On 05/10/2020 she had a primary delivery of a live female at 17:41. Apgars of 8 and 9. Weight of 3640 g (8 pounds 0.4 ounces). She was closed in a normal fashion. There were no complications with the procedure. Please see the operative report for full details. Her post operative course was complicated by minimal urine output in the evening of POD #0 into the morning of POD #1 but this resolved by the morning of POD #1. Her pain was well controlled and she had minimal lochia. She was ambulating, tolerating a regular diet and voiding normally. She was passing flatus and has not had a bowel movement. She was pumping breastmilk for feeding infant and this was going well for her. She was afebrile and her hematocrit was 26.9 on POD #1. She desired to be discharged home on the morning of POD #2. Her blood type is O+. - Patient Instructions Diet: Regular Diet as Tolerated Activity: Apply Ice, As Tolerated, No Lifting Over 20 Pounds Activity, Other: Nothing in the vagina for 6 weeks Driving: Do Not Drive (While taking narcotic medications or having significant pain.) Showering/Bathing: May Shower Wound/Incision Care: Keep Operative Site/Wound Site Clean and Dry Notify Provider of: Fever, Increased Pain, Swelling and Redness, Drainage, Nausea and/or Vomiting Other/Special Instructions: Please contact your physician's office if you note any bleeding or pus coming from the abdominal incision. Please contact your physician's office if you have heavy vaginal bleeding enough to soak a pad in less than an hour for several hours. Monitor for any signs of an infection in the breasts with severe pain or redness of the breast. - Discharge Plan *PRESCRIPTION DRUG MONITORING PROGRAM REVIEWED*: Yes *COPY OF PRESCRIPTION DRUG MONITORING REPORT IN PATIENT DRAGAN: No Prescriptions/Med Rec: Acetaminophen/oxyCODONE [Percocet 325-5 MG] 1 - 2 tab PO Q6H PRN #30 tablet PRN Reason: Pain Home Medications: Home Meds Ferrous Sulfate [Slow Release Iron] 160 mg PO DAILY 11/12/17 [History] Vit 10/Iron/Folic/Dha [Vitafol-OB + DHA] 1 each PO DAILY 11/12/17 [History] Acetaminophen/oxyCODONE [Percocet 325-5 MG] 1 - 2 tab PO Q6H PRN #30 tablet 05/12/20 [Rx] Docusate Sodium [Colace] 100 mg PO BID cap 05/12/20 [Rx] Ibuprofen [Motrin] 600 mg PO Q6H PRN tablet 05/12/20 [Rx] Patient Handouts: Care After Delivery Referrals: Felix Bradley MD [Physician] - (Follow-up in 2 to 3 weeks for routine postoperative visit or earlier as needed.) - Discharge Summary/Plan Comment DC Time >30 min.: No - Patient Data Vitals - Most Recent: Last Vital Signs Temp 36.6 C 05/12/20 08:45 Pulse 81 05/12/20 08:45 Resp 12 05/12/20 08:45 BP 102/59 L 05/12/20 08:45 Pulse Ox 99 05/12/20 08:45 Weight - Most Recent: 98.43 kg I&O - Last 24 hours: Intake & Output 05/11/20 05/12/20 05/12/20 22:59 06:59 14:59 Output Total 625 Balance -625 Med Orders - Current: Current Medications Diphenhydramine HCl (Benadryl) 25 mg IVPUSH Q6H PRN PRN Reason: Itching or Nausea Docusate Sodium (Colace) 100 mg PO BID [facility] Last Admin: 05/12/20 08:42 Dose: 100 mg Documented by: Ephedrine Sulfate (Ephedrine Sulfate) 5 mg IVPUSH SEECOMMENT PRN PRN Reason: Other Ferrous Sulfate (Ferrous Sulfate) 324 mg PO WITHBREAKFAST [facility] Last Admin: 05/12/20 06:46 Dose: 324 mg Documented by: Oxytocin/Lactated Ringer's (Pitocin In Lr 10 Units/1,000 Ml) 10 unit in 1,000 mls @ 100 mls/hr IV .CONTINUOUS [facility] Ibuprofen (Motrin) 600 mg PO Q6H PRN PRN Reason: mild pain or fever Last Admin: 05/12/20 08:42 Dose: 600 mg Documented by: Magnesium Hydroxide (Milk Of Magnesia) 30 ml PO BEDTIME PRN PRN Reason: Constipation Naloxone HCl (Narcan) 0.1 mg IVPUSH SEECOMMENT PRN PRN Reason: Respiratory Depression Oxycodone/Acetaminophen (Percocet 325-5 Mg) 1 tab PO Q6H PRN PRN Reason: Pain (moderate 4-6) Last Admin: 05/11/20 15:56 Dose: 1 tab Documented by: Oxycodone/Acetaminophen (Percocet 325-5 Mg) 2 tab PO Q6H PRN PRN Reason: Pain (severe 7-10) Last Admin: 05/12/20 03:37 Dose: 2 tab Documented by: Prenat Multivit/Coles/Iron/Folic Ac ( Plus Iron) 1 each PO DAILY [facility] Last Admin: 05/12/20 08:42 Dose: 1 each Documented by: Discontinued Medications Bupivacaine HCl (Marcaine 0.5%) Confirm Administered Dose 30 ml .ROUTE .STK-MED ONE Stop: 05/10/20 16:25 Last Admin: 05/10/20 17:37 Dose: 20 ml Documented by: Cefazolin Sodium (Ancef) Confirm Administered Dose 2 gm .ROUTE .STK-MED ONE Stop: 05/10/20 17:05 Citric Acid/Sodium Citrate (Bicitra Solution) 30 ml PO ONETIME ONE Stop: 05/10/20 16:19 Last Admin: 05/10/20 16:51 Dose: 30 ml Documented by: Diphenhydramine HCl (Benadryl) 25 mg IVPUSH Q6H PRN PRN Reason: Pruritis Stop: 05/10/20 19:30 Ephedrine Sulfate (Ephedrine Sulfate) Confirm Administered Dose 50 mg .ROUTE .STK-MED ONE Stop: 05/10/20 17:49 Fentanyl (Sublimaze) 50 mcg IVPUSH Q5M PRN PRN Reason: Pain Stop: 05/10/20 19:30 Oxytocin/Lactated Ringer's (Pitocin In Lr 10 Units/1,000 Ml) 10 unit in 1,000 mls @ 100 mls/hr IV ASDIRECTED [facility] Oxytocin/Lactated Ringer's (Pitocin In Lr 20 Units/1,000 Ml) 20 unit in 1,000 mls @ 500 mls/hr IV TITRATE [facility] Cefazolin Sodium/Dextrose 2 gm (/ Premix) 50 mls @ 100 mls/hr IV ONETIME ONE Stop: 05/10/20 16:47 Last Admin: 05/10/20 21:24 Dose: Not Given Documented by: Lactated Ringer's (Ringers, Lactated) 1,000 mls @ 125 mls/hr IV ASDIRECTED [facility] Last Admin: 05/10/20 16:51 Dose: 500 mls/hr Documented by: Lactated Ringer's (Ringers, Lactated) Confirm Administered Dose 2,000 mls @ as directed .ROUTE .STK-MED ONE Stop: 05/10/20 17:05 Dextrose/Lactated Ringer's (Dextrose 5%-Lactated Ringers) 1,000 mls @ 125 mls/hr IV ASDIRECTED [facility] Stop: 05/11/20 03:18 Last Admin: 05/10/20 20:23 Dose: 125 mls/hr Documented by: Ketorolac Tromethamine (Toradol) Confirm Administered Dose 15 mg .ROUTE .STK-MED ONE Stop: 05/10/20 17:07 Ketorolac Tromethamine (Toradol) 15 mg IVPUSH Q6H [facility] Stop: 05/11/20 12:02 Last Admin: 05/11/20 12:06 Dose: 15 mg Documented by: Metoclopramide HCl (Reglan) 10 mg IVPUSH ONETIME ONE Stop: 05/10/20 16:19 Last Admin: 05/10/20 16:51 Dose: 10 mg Documented by: Miscellaneous Medication (Phenylephrine 1 Mg/10 Ml-Ns) Confirm Administered Dose 1 mg .ROUTE .STK-MED ONE Stop: 05/10/20 17:48 Morphine Sulfate (Duramorph Pf) Confirm Administered Dose 10 mg .ROUTE .STK-MED ONE Stop: 05/10/20 17:05 Ondansetron HCl (Zofran) Confirm Administered Dose 4 mg .ROUTE .STK-MED ONE Stop: 05/10/20 17:05 Ondansetron HCl (Zofran) 4 mg IVPUSH ONETIME PRN PRN Reason: Nausea/Vomiting Stop: 05/10/20 19:30 Oxytocin (Pitocin) Confirm Administered Dose 20 unit .ROUTE .STK-MED ONE Stop: 05/10/20 17:05 Sodium Chloride (Saline Flush) 10 ml FLUSH ASDIRECTED PRN PRN Reason: Keep Vein Open
== END 2020-05-12 11:55 | disposition home or self-care (01) | DRG 788 ==
LOC: JD.OBCHECK 16:03 → JD.OB 16:10 → JD.OBCHECK 16:18 → JD.OB 16:18
PROVIDERS: ADMIT Obstetrics & Gynecology; ATTEND Obstetrics & Gynecology
PROC: 10D00Z1 Extraction of Products of Conception, Low, Open Approach (ICD-10-PCS; principal; 2020-05-10)
DX: O36.63X0 Maternal care for excessive fetal growth, third trimester, not applicable or unspecified (principal); Z3A.38 38 weeks gestation of pregnancy; Z37.0 Single live birth; Z20.828 Contact with and (suspected) exposure to other viral communicable diseases; Z87.891 Personal history of nicotine dependence
CPT/HCPCS: 01961; 36415; 59025; 85025; 86592; 86850; 86900; 86901; A9270-GY; J0690; J1885; J2270; J2370; J2405; J2590; J2765; J3490; J7120; J7121; U0002

== ENCOUNTER → 2022-06-17 | Day surgery (SDC) | payer OTHER ==
[~2022-06-17] MED LIST: Acetaminophen/oxyCODONE 325-5 MG Tab PO PRN; Bupivacaine 0.25%/EPINEPHrine 1:200,000 30 ML SDV ONE; Dexamethasone 4 MG/ML 5 ML MDV ONE; HYDROmorphone 0.5 MG/0.5 ML Syringe IVPUSH PRN; Ibuprofen 600 MG Tab PO PRN; Ketorolac 30 MG/ML SDV IVPUSH SCH; Ketorolac 30 MG/ML SDV ONE; Lactated Ringers 1,000 ML IV SCH; Lidocaine 1% 5 ML VIAL ONE; Lidocaine 1%/Sod Bicarbonate in NS 8.4% 1 ML Syringe IDERM PRN; Midazolam 1 MG/ML 2 ML SDV ONE; Ondansetron 4 MG/2 ML SDV IVPUSH PRN; Ondansetron 4 MG/2 ML SDV ONE; Propofol 200 MG/20 ML SDV ONE; Rocuronium 50 MG/5 ML Vial ONE; Sodium Chloride 0.9% 10 ML Syringe FLUSH PRN; Sodium Chloride 0.9% 10 ML Syringe FLUSH SCH; Sugammadex Sodium 200 MG/2 ML VIAL ONE; ceFAZolin 2 GM Vial ONE; fentaNYL 100 MCG/2 ML SDV IVPUSH PRN; fentaNYL 100 MCG/2 ML SDV ONE
== END | disposition home or self-care (01) ==
LOC: JD.SDS 06:21
PROVIDERS: ATTEND Obstetrics & Gynecology
DX: D25.9 Leiomyoma of uterus, unspecified (principal); N83.8 Other noninflammatory disorders of ovary, fallopian tube and broad ligament; N73.6 Female pelvic peritoneal adhesions (postinfective); N85.2 Hypertrophy of uterus; R63.5 Abnormal weight gain; J45.909 Unspecified asthma, uncomplicated; E11.9 Type 2 diabetes mellitus without complications; Z68.37 Body mass index [BMI] 37.0-37.9, adult; Z98.890 Other specified postprocedural states; Z87.891 Personal history of nicotine dependence
CPT/HCPCS: 36415; 57260; 58262; 81003; 81025; 82565; 85025; 86850; 86900; 86901; A9270; J0690; J1100; J1885; J2250; J2405; J2704; J3010; J3490; J7120